=== PATIENT | male | born 1975 | race Caucasian/White ===

== ENCOUNTER 2017-02-26 13:23 | Emergency (ER) | payer OTHER ==
[~2017-02-26] VITALS: Ht 188 cm; Wt 102.7 kg
[~2017-02-26 13:23] MED LIST: ALLEGRA ALLERG180 MG PO; AMBIEN5 MG PO; AZELASTINE137 MCG/0. BOTH NARES; BENZAPRIL PO; BROMFED DM COU118 ML PO; FENTANYL1 EAC5 TD; FLONASE16 G1 BOTH NARES; FLUTICASONE PRO16 GM BOTH NARES; LORTAB 10/501 TABLET PO; LORTAB 5-500 T1 EACH PO; LOTENSIN5 MG PO; OXYCODONE-APAP1 EAC6 PO; TESTOSTERO200 MG/12 IM; ZITHROMAX Z-PA250 MG PO; ZITHROMAX500 MG PO; [UNRECOGNIZED DRUG - OTHER]
[2017-02-26] MEDS ORDERED: NAPROSYN500 MG PO (14:54)
[2017-02-26 15:09] VITALS: BP 116/88
== END 2017-02-26 15:11 | disposition home or self-care (01) ==
LOC: EME 13:23
DX: M17.11 Unilateral primary osteoarthritis, right knee (principal)
CPT/HCPCS: 73564; 99281; 99283